=== PATIENT | female | born 1960 | race Caucasian/White ===

== ENCOUNTER 2023-09-07 10:39 | Day surgery (SDC) | payer OTHER ==
[~2023-09-07] VITALS: Ht 177.8 cm; Wt 72.6 kg
[2023-09-07] MEDS ORDERED: DEXL60CA4 PO (13:03)
[2023-09-07] MEDS ORDERED: METH-374 PO (13:03)
[2023-09-07] MEDS ORDERED: fentaNYL CITRATE/PF 100 MCG/2 ML AMP ONE ×2 (15:03→17:32)
[2023-09-07] MEDS ORDERED: ONDANSETRON HCL 4 MG/2 ML VIAL IVP PRN ×2 (17:30→17:45)
[2023-09-07] MEDS ORDERED: METOCLOPRAMIDE HCL 10 MG/2 ML VIAL IVP PRN (17:30)
[2023-09-07] MEDS ORDERED: MEPERIDINE HCL/PF 25 MG/ML DISP.SYRIN IVP PRN (17:30)
[2023-09-07] MEDS ORDERED: LIDOCAINE/EPI 1% 1:100000 20 ML VIAL ONE (17:32)
[2023-09-07] MEDS ORDERED: LR 1,000 ML IV.SOLN IV ONE (17:32)
[2023-09-07] MEDS ORDERED: SUGAMMADEX SODIUM 200 MG/2 ML VIAL IV ONE (17:32)
[2023-09-07] MEDS ORDERED: ONDANSETRON HCL 4 MG/2 ML VIAL ONE (17:32)
[2023-09-07] MEDS ORDERED: METOCLOPRAMIDE HCL 10 MG/2 ML VIAL ONE (17:32)
[2023-09-07] MEDS ORDERED: DEXAMETHASONE SOD PHOSPHATE 4 MG/ML VIAL ONE (17:32)
[2023-09-07] MEDS ORDERED: SEVOFLURANE 15 MIN GAS INH ONE (17:32)
[2023-09-07] MEDS ORDERED: ROCURONIUM BROMIDE 10 MG/ML (ZEMURON) ONE (17:32)
[2023-09-07] MEDS ORDERED: MIDAZOLAM HCL 2 MG/2 ML VIAL (VERSED) ONE (17:32)
[2023-09-07] MEDS ORDERED: MUPIROCIN 1 GM OIN.PF.APP NS ONE (17:32)
[2023-09-07] MEDS ORDERED: LIDOCAINE 2%, 20 ML MDV ONE (17:32)
[2023-09-07] MEDS ORDERED: PROPOFOL 200MG/ 20ML VIAL (DIPRIVAN) IV ONE (17:32)
[2023-09-07] MEDS ORDERED: 0.45% NACL 1,000 ML IV SCH (17:45)
[2023-09-07] MEDS ORDERED: KCL 20 mEq in 0.45% NS 1000 mL 1,000 ML IV SCH (17:45)
[2023-09-07] MEDS ORDERED: ACETAMINOPHEN I.V. 1000 MG 100 ML IV ONE ×2 (17:59→18:00)
[2023-09-07] MEDS ORDERED: HYDROmorphone 1 MG/ML INJ. CARTRIDGE ONE (18:15)
[2023-09-07] MEDS: HYDROmorphone 1 MG/ML INJ. CARTRIDGE IVP PRN ×2 (18:20→18:30)
[2023-09-07 18:41] LABS: ALBUMIN 3.9 g/dL (3.4-4.8); CALCIUM 9.1 mg/dL (8.4-11.0)
[2023-09-07 20:17] VITALS: BP_SYST 141; PULSE 81; RESP 18; TEMP 97.5
[2023-09-07] MEDS ORDERED: MUPIROCIN 2% TOPICAL OINTMENT 22 GM TP SCH (21:00)
[2023-09-07] MEDS ORDERED: KCL 20 mEq in 0.45% NS 1000 mL 1,000 ML IV ONE (22:24)
[2023-09-07] MEDS: traMADol HCL HCL 50 MG TABLET (ULTRAM) PO PRN (22:44)
[2023-09-08 00:07] VITALS: BP_SYST 105; PULSE 78; RESP 16; TEMP 97.9; O2SAT 95
[2023-09-08 03:03] VITALS: O2SAT 94
[2023-09-08] MEDS: traMADol HCL HCL 50 MG TABLET (ULTRAM) PO PRN (04:25)
[2023-09-08 08:15] VITALS: O2SAT 99
[2023-09-08] MEDS ORDERED: calcitrioL 0.25 MCG CAPSULE PO SCH (09:00)
[2023-09-08] MEDS ORDERED: traMADol HCL HCL 50 MG TABLET (ULTRAM) PO ONE (09:30)
[2023-09-08 12:00] VITALS: BP_SYST 121; PULSE 67; RESP 16; TEMP 97.2; O2SAT 99
[2023-09-08 12:45] VITALS: BP_SYST 121; PULSE 67; RESP 16; TEMP 97.2; O2SAT 99
== END 2023-09-08 13:20 | disposition home or self-care (01) ==
LOC: SDS 10:39 → SMU 10:42 → SDS 09-08 13:20 → SMU 09-08 13:20
PROVIDERS: ATTEND Otolaryngology
DX: E04.2 Nontoxic multinodular goiter (principal); E05.81 Other thyrotoxicosis with thyrotoxic crisis or storm; D44.0 Neoplasm of uncertain behavior of thyroid gland; R49.0 Dysphonia; G43.909 Migraine, unspecified, not intractable, without status migrainosus; K21.9 Gastro-esophageal reflux disease without esophagitis; E03.9 Hypothyroidism, unspecified; Z88.0 Allergy status to penicillin; N95.1 Menopausal and female climacteric states; Z79.899 Other long term (current) drug therapy
CPT/HCPCS: 60220; 82040; 82310; 36415; 88307; J3490; J1100; J2001; J2765; J3465; J2405; J2704; J3010; J1170; J7120; J0131; J3480